=== PATIENT | male | born 1965 | race Caucasian/White ===

== ENCOUNTER 2022-09-30 18:13 | Emergency (ER) | payer BC ==
[~2022-09-30] VITALS: Ht 182.9 cm; Wt 87.3 kg
[2022-09-30 18:18] VITALS: BP 163/99
[2022-09-30] MEDS ORDERED: LIDOcaine 1% W/epiNEPHrine 1:100,000 20ml vial IJ ONE (19:20)
[2022-09-30] MEDS ORDERED: TETanus/Pertussis (Acell)/Diphther VAC/PF (Tdap-Adult) 0.5ml syringe IMVAC ONE (19:20)
[2022-09-30] MEDS ORDERED: bacitracin 15gm ointment TP ONE (19:20)
[2022-09-30] MEDS ORDERED: ceFAZolin 1gm IM kit IM ONE (19:40)
== END 2022-09-30 20:41 | disposition home or self-care (01) ==
LOC: ER 18:14
DX: M79.644 Pain in right finger(s) (principal); S61.214A Laceration without foreign body of right ring finger without damage to nail, initial encounter; X58.XXXA Exposure to other specified factors, initial encounter; Y93.89 Activity, other specified; Y92.89 Other specified places as the place of occurrence of the external cause; Y99.8 Other external cause status
CPT/HCPCS: 12001; 73140; 90471; 90715; 96372; 99284; J0690; J7030; 99283; A6449